=== PATIENT | female | born 1995 | race Caucasian/White ===

== ENCOUNTER 2021-02-15 08:06 | Observation (INO) | payer OTHER ==
[~2021-02-15] VITALS: Ht 165.1 cm; Wt 60.3 kg
[2021-02-15 08:11] VITALS: BP 131/88
--- NOTE | 2021-02-15 08:20 | NUR ---
Patient ambulated to bed 09 with steady/even gait.
[2021-02-15] MEDS ORDERED: METOCLOPRAMIDE 10 MG/2 ML INJ VIAL IVP ONE (08:30)
[2021-02-15] MEDS ORDERED: NACL 0.9% 2,000 ML IV ONE (08:30)
--- NOTE | 2021-02-15 08:30 | NUR ---
Dr. Coleman is evaluating patient at bedside
--- NOTE | 2021-02-15 08:45 | NUR ---
25 y/o F BIB from home c/o nausea + vomiting x 4 weeks. Patient A&Ox4, ambulatory, reports she is 9 weeks , 1 , and began experiencing nausea and vomiting 4 weeks into . Patient reports for past 2 weeks nausea and vomiting has been progressively worsening. Patient reports weakness and associated loss of appetite of fluids and PO + constipation "a few weeks now." Patient reports diagnosed with UTI two weeks ago, however, has not picked up prescription for ABX. Patient denies fever, chills, dysuria, SOB, chest pain, headache. Pt placed into gown and puffer tender showing HR 126. Bed locked in lowest position, side rails x 1, call light in reach. at bedside. MEDHX: DENIES ALLERGIES: DENIES
--- NOTE | 2021-02-15 08:59 | NUR ---
EMT at bedside for EKG
--- NOTE | 2021-02-15 09:14 | NUR ---
Pt reports she feels a lot better, denies any nausea at this time. remains at bedside. HR 96.
[2021-02-15 09:31] LABS: BASOPHILS % (AUTO) 0.2 % (0.0-2.0); EOSINOPHILS # (AUTO) 0.1 K/uL (0-0.4); EOSINOPHILS % (AUTO) 0.3 % (0.0-4.0); HEMATOCRIT 44.6 % (36-48); HEMOGLOBIN 15.9 g/dL (12.0-16.0); LYMPHOCYTES # (AUTO) 1.8 K/uL (2.5-16.5); LYMPHOCYTES % (AUTO) 10.3 % (20.5-51.1); MEAN CORPUSCULAR HEMOGLOBIN 32 pg (27-31); MEAN CORPUSCULAR HGB CONC 36 g/dL (33-37); MEAN CORPUSCULAR VOLUME 88.6 fL (80-94); MONOCYTES # (AUTO) 1.2 K/uL (0.8-1.0); MONOCYTES % (AUTO) 6.7 % (1.7-9.3); NEUTROPHILS # (AUTO) 14.3 K/uL (1.8-7.7); NEUTROPHILS % (AUTO) 82.5 % (42.2-75.2); PLATELET COUNT (AUTO) 258 K/uL (140-450); RED BLOOD CELL COUNT(AUTO) 5.03 MIL/uL (4.20-5.40); RED CELL DISTRIBUTION WIDTH 13.1 % (11.6-13.7); WHITE BLOOD COUNT (AUTO) 17.3 K/uL (4.8-10.8)
[2021-02-15 09:51] LABS: ALBUMIN 4.2 g/dL (3.4-5.0); ANION GAP 23.6 (8-16); CARBON DIOXIDE 16.9 mmol/L (21-32); CREATININE 0.7 mg/dL (0.6-1.3); TOTAL BILIRUBIN 0.9 mg/dL (0.0-1.0)
[2021-02-15 10:09] LABS: POTASSIUM 2.5 mmol/L (3.5-5.1)
[2021-02-15] MEDS ORDERED: MAG SULF 2000 MG/WATER PREMIX 50 ML IV ONE (10:15)
[2021-02-15] MEDS ORDERED: POTASSIUM CHLORIDE 10 MEQ TABER PO ONE (10:15)
[2021-02-15] MEDS ORDERED: POTASSIUM CHLORIDE 20% 40 MEQ/15 ML UDC PO ONE ×2 (10:20→10:30)
--- NOTE | 2021-02-15 10:21 | NUR ---
Patient sitting upright in bed with at bedside. monitor tech in place. Pt states she feels a lot better at this time. Bed locked in lowest position, side rails x 1, call light in reach.
[2021-02-15] MEDS ORDERED: PNV1TABL5 PO (10:54)
[2021-02-15] MEDS ORDERED: RIZA10TA16 PO (10:54)
[2021-02-15] MEDS ORDERED: LACTATED RINGERS 1,000 ML IV ONE (11:30)
--- NOTE | 2021-02-15 11:36 | NUR ---
Pt sitting upright in bed on telephone. Pt provided with ice chips per request. All needs met.
[2021-02-15 11:39] LABS: APPEARANCE,URINE CLEAR (CLEAR); BILIRUBIN,URINE 1+ (NEGATIVE); BLOOD, URINE TRACE-L (NEGATIVE); COLOR,URINE DARK YELLOW (YELLOW); LEUKOCYTE ESTERASE ,URINE NEGATIVE (NEGATIVE); NITRITE, URINE NEGATIVE (NEGATIVE); UGLUCOSE NEGATIVE (NEGATIVE)
--- NOTE | 2021-02-15 11:48 | NUR ---
Ice chips provided per request. Pt denies nausea at this time. Denies pain. All pt needs met.
--- NOTE | 2021-02-15 12:21 | NUR ---
Pt resting in semi-fowlers in position of comfort. media monitor in place. Bed locked in lowest position, side rails x 1, call light in reach. remains at bedside
[2021-02-15 12:22] LABS: RBC,URINE 0-5 /HPF (0-5); YEAST,URINE Moderate /HPF (None Seen)
--- NOTE | 2021-02-15 13:21 | NUR ---
Patient resting in semi-fowlers position sitting upright. monitor worker in place. VSS. Denies nausea at this time. Emesis bag remains at bedside
[2021-02-15] MEDS ORDERED: KCL 20 MEQ/WATER INJ PREMIX 200 ML IV ONE (13:30)
[2021-02-15] MEDS ORDERED: cefTRIAXone 1,000 MG VIAL ONE (16:38)
[2021-02-15] MEDS ORDERED: POTASSIUM CHLORIDE 10 MEQ TABER PO PRN (16:50)
[2021-02-15] MEDS ORDERED: MAGNESIUM OXIDE 400 MG TAB PO PRN (16:50)
[2021-02-15] MEDS: THIAMINE 100 MG TAB PO SCH (16:55)
[2021-02-15] MEDS ORDERED: PYRIDOXINE 50 MG TAB ONE ×2 (17:25→17:27)
[2021-02-15] MEDS ORDERED: CRUSHER, PILL MC ONE (17:26)
--- NOTE | 2021-02-15 17:27 | NUR ---
PULLED ADDITIONAL VITAMIN B6 FROM PYXIS -- FIRST PULL DROPPED ONTO GROUND.
--- NOTE | 2021-02-15 17:30 | NUR ---
Pt reports she is not used to swallowing pills, refusing PO medications at this time.
[2021-02-15] MEDS: DICYCLOMINE 10 MG CAP PO SCH (17:35)
--- NOTE | 2021-02-15 17:55 | NUR ---
Pt reports nausea + vomiting x 1 episode. Zofran PRN to be given.
[2021-02-15] MEDS: NACL 0.9% 1,000 ML IV SCH ×2 (18:07→23:54)
[2021-02-15] MEDS: ONDANSETRON 4 MG/2 ML VIAL IVP PRN (18:09)
--- NOTE | 2021-02-15 18:30 | NUR ---
Patient at bedside with KCl IVPB running. Pt complained of pain from medication; increased rate of NS. All pt needs met.
--- NOTE | 2021-02-15 19:18 | NUR ---
Report and transfer of care endorsed to BINA Bledsoe
--- NOTE | 2021-02-15 21:09 | NUR ---
report given to giana walker.
[2021-02-15 21:22] VITALS: BP 112/77
--- NOTE | 2021-02-15 21:22 | NUR ---
Patient will be admitted to care of . Admited to [facility]. Will go to [id number]. Belongings list completed. Report to BINA CAMPOS.
--- NOTE | 2021-02-15 21:22 | NUR ---
ADMITTED FROM ER WITH CHIEF COMPLAINT OF NAUSEA AND VOMITING ACCOMPANIED BY ER NURSE VIA WHEELCHAIR. PATIENT IS STABLE. A&OX4. RESPIRATIONS EVEN AND UNLABORED. O2 ON RA WITH SAT OF 97%. PATIENT DENIES ANY PAIN OR DISTRESS AT THE MOMENT. NO APPARENT S/SX OF ACUTE RESPIRATORY DISTRESS. PATIENT STATES SHE IS 9 WEEKS AND EPISODES OF NAUSEA AND VOMITING STARTED APPROXIMATELY 4 WEEKS AGO. PATIENT STATES THAT NAUSEA AND VOMITING HAS GONE AWAY AT THIS TIME. 20G ON LEFT HAND SL PATENT/INTACT. COMPLETED HEAD-TO-TOE ASSESSMENTS WITH MAYE CURRAN. SKIN IS INTACT. ORIENTED TO CALL LIGHT, BED, PHONE, TELEVISION, BATHROOM, SMOKING POLICY, VISITING HOURS, PROCEDURES. ID BRACELET ON. BELONGINGS LIST CHECKED. ALL SAFETY MEASURES IN PLACE. BED ON LOW/LOCKED POSITION. CALL LIGHT WITHIN REACH. ENCOURAGED PATIENT TO USE CALL LIGHT FOR ANY NEEDS/ASSISTANCE. WILL CONTINUE TO MONITOR.
--- NOTE | 2021-02-15 22:00 | NUR ---
Patient's Plan of Care was discussed and reviewed with CHRONOMETER ASSEMBLER: EMMETT MIRAMONTES
--- NOTE | 2021-02-15 22:30 | NUR ---
PATIENT C/O OF HEARTBURN. CONTACTED CALI HARRIS MD TO PUT IN AN ORDER FOR TUMS.
[2021-02-16] VITALS: BP 113/69
[2021-02-16] MEDS: CALCIUM CARBONATE 500 MG TAB.CHEW PO PRN (00:07)
--- NOTE | 2021-02-16 00:07 | NUR ---
ADMINISTERED TUMS. WILL REASSESS PATIENT IN AN HOUR.
--- NOTE | 2021-02-16 01:07 | NUR ---
REASSESSED PATIENT. MEDICATION EFFECTIVE EVIDENCED BY PATIENT STATING "HEARTBURN WENT AWAY". PROVIDED PATIENT WITH APPLE JUICE. ADVISED PATIENT TO DRINK TOLERATED. ALL SAFETY MEASURES IN PLACE. CALL LIGHT WITHIN REACH. WILL CONTINUE TO MONITOR.
--- NOTE | 2021-02-16 03:10 | NUR ---
CHECKED ON PATIENT. STABLE AND ASLEEP. BREATHING SYMMETRICAL. NO APPARENT S/SX OF ACUTE RESPIRATORY DISTRESS. ALL SAFETY MEASURES IN PLACE. CALL LIGHT WITHIN REACH. WILL CONTINUE TO MONITOR.
[2021-02-16 04:00] VITALS: BP 118/70
--- NOTE | 2021-02-16 05:10 | NUR ---
CHECKED ON PATIENT. STABLE AND SLEEPING COMFORTABLY. RESPIRATIONS EVEN AND UNLABORED. NO APPARENT S/SX OF ACUTE RESPIRATORY DISTRESS. ALL SAFETY MEASURES IN PLACE. CALL LIGHT WITHIN REACH. WILL CONTINUE TO MONITOR.
[2021-02-16] MEDS: NACL 0.9% 1,000 ML IV SCH ×3 (05:20→23:26)
--- NOTE | 2021-02-16 07:00 | NUR ---
ENDORSED TO MORNING SHIFT REGARDING PATIENT'S ANDERSON. PATIENT IS STABLE.
--- NOTE | 2021-02-16 07:30 | NUR ---
REPORT RECEIVED FROM PM SHIFT RN FOR CONTINUITY OF CARE. PT IS A&0X4. ABLE TO MAKE TO NEEDS KNOWN. IV SITE LT HAND 20G, INTACT, PATENT, GOOD BLOOD RETURN, INFUSING 80 ML/HR. SKIN INTACT, WARM AND DRY. BED LOCKED IN LOWEST POSITION. SAFETY PRECAUTIONS IN PLACE. CALL LIGHT WITHIN IN REACH, WILL CONTINUE TO MONITOR.
[2021-02-16 07:34] LABS: ALBUMIN 2.8 g/dL (3.4-5.0); ANION GAP 16.4 (8-16); CARBON DIOXIDE 19.4 mmol/L (21-32); CREATININE 0.4 mg/dL (0.6-1.3); MAGNESIUM 1.9 mg/dL (1.8-2.4); TOTAL BILIRUBIN 0.6 mg/dL (0.0-1.0)
[2021-02-16 07:43] LABS: POTASSIUM 2.8 mmol/L (3.5-5.1)
[2021-02-16 08:00] VITALS: BP 105/62
[2021-02-16] MEDS ORDERED: CRUSHER, PILL MC ONE (08:19)
[2021-02-16] MEDS ORDERED: KCL 20 MEQ/WATER INJ PREMIX 200 ML IV SCH (09:00)
[2021-02-16] MEDS ORDERED: POTASSIUM CHLORIDE 20% 40 MEQ/15 ML UDC ONE (09:07)
[2021-02-16] MEDS: PYRIDOXINE 50 MG TAB PO SCH (09:14)
[2021-02-16] MEDS: THIAMINE 100 MG TAB PO SCH (09:14)
[2021-02-16] MEDS ORDERED: POTASSIUM CHLORIDE 20% 40 MEQ/15 ML UDC PO SCH (09:20)
--- NOTE | 2021-02-16 11:30 | NUR ---
PATIENT SITTING IN BED WATCHING TV. AT BEDSIDE. NO DISTRESS NOTED. WILL CONTINUE TO MONITOR.
--- NOTE | 2021-02-16 14:30 | NUR ---
PATIENT WATCHING VIDEO ON HER PHONE. CONDITION UNCHANGED. NO NAUSEA/VOMITING AT THIS TIME. WILL CONTINUE TO MONITOR.
[2021-02-16 16:00] VITALS: BP 113/73
[2021-02-16] MEDS: DICYCLOMINE 10 MG CAP PO SCH (16:55)
--- NOTE | 2021-02-16 16:55 | NUR ---
PATIENT REFUSED SCHEDULED DICYLCOMINE. WILL CONTINUE TO MONITOR.
--- NOTE | 2021-02-16 18:17 | NUR ---
PATIENT SITTING DOWN IN BED WITH DINNER TRAY IN FRONT. NO DISTRESS NOTED. CONDITION UNCHANGED. WILL CONTINUE TO MONITOR.
--- NOTE | 2021-02-16 19:24 | NUR ---
GAVE REPORT TO [employer] SALES CONSULTANT NURSE FOR CONTINUITY OF CARE. PATIENT IN STABLE CONDITION.
--- NOTE | 2021-02-16 19:25 | NUR ---
RECEIVED ENDORSEMENT FROM MORNING SHIFT REGARDING PATIENT'S CONTINUITY OF CARE. PATIENT STABLE AND EATING DINNER. A&OX4. RESPIRATIONS EVEN AND UNLABORED. ON ROOM AIR. NO APPARENT SIGNS AND SYMPTOMS OF ACUTE RESPIRATORY DISTRESS. SKIN INTACT, WARM, AND DRY. PATIENT DENIES PAIN 0/10. PATIENT C/O OF COUGHING 30 MINUTES AGO AND TINGLING SENSATION IN THE FACE. ENDORSED TO DIANA CHRISTINE REGARDING INTERVENTIONS. IV SITE OF 20G ON RIGHT HAND INTACT/PATENT WITH NS INFUSING AT 80 ML/HOUR. PLAN OF CARE AND WHITE BOARD COMMUNICATION UPDATED. ON BEDSIDE. ALL SAFETY MEASURES IN PLACE. BED ON LOW/LOCKED POSITION. CALL LIGHT WITHIN REACH. ENCOURAGED PATIENT TO USE CALL LIGHT FOR ANY NEEDS/ASSISTANCE. WILL CONTINUE TO MONITOR.
--- NOTE | 2021-02-16 20:00 | NUR ---
Patient's Plan of Care was discussed and reviewed with REEL ASSEMBLER: EMMETT MIRAMONTES
--- NOTE | 2021-02-16 21:20 | NUR ---
CHECKED ON PATIENT. STABLE IN BED EATING DINNER TRAY. NO APPARENT S/SX OF ACUTE RESPIRATORY DISTRESS. DENIES PAIN 0/10. ENCOURAGED PATIENT TO USE CALL LIGHT WITH ANY ASSISTANCE/NEEDS. WILL CONTINUE TO MONITOR.
--- NOTE | 2021-02-16 23:26 | NUR ---
NEW BAG OF NS HANGING AND INFUSING AT 80ML/HOUR. IV SITE ON LEFT HAND 20G PATENT/INTACT. NO APPARENT S/SX OF ACUTE RESPIRATORY DISTRESS. ALL SAFETY MEASURES IN PLACE. CALL LIGHT WITHIN REACH. WILL CONTINUE TO MONITOR.
[2021-02-17] VITALS: BP 115/74
--- NOTE | 2021-02-17 01:02 | NUR ---
ROUNDED ON PATIENT. STABLE AND SLEEPING COMFORTABLY IN SUPINE POSITION. RESPIRATIONS EVEN AND UNLABORED. NO APPARENT S/SX OF ACUTE RESPIRATORY DISTRESS. ALL SAFETY MEASURES IN PLACE. CALL LIGHT WITHIN REACH. WILL CONTINUE TO MONITOR.
--- NOTE | 2021-02-17 03:02 | NUR ---
ROUNDED ON PATIENT. STABLE AND SLEEPING COMFORTABLY. BREATHING SYMMETRICAL. NO APPARENT S/SX OF ACUTE RESPIRATORY DISTRESS. ALL SAFETY MEASURES IN PLACE. CALL LIGHT WITHIN REACH. WILL CONTINUE TO MONITOR.
--- NOTE | 2021-02-17 05:02 | NUR ---
CHECKED ON PATIENT. STABLE AND SLEEPING COMFORTABLY. BREATHING SYMMETRICAL. NO APPARENT S/SX OF ACUTE RESPIRATORY DISTRESS. ALL SAFETY MEASURES IN PLACE. CALL LIGHT WITHIN REACH. WILL CONTINUE TO MONITOR.
[2021-02-17] MEDS: ONDANSETRON 4 MG/2 ML VIAL IVP PRN (06:06)
--- NOTE | 2021-02-17 06:06 | NUR ---
VOMITED SMALL AMOUNT OF LIQUID. MEDICATED WITH ZOFRAN PER MD ORDER BY CHARGE NURSE ILSA. WILL CONTINUE TO MONITOR.
[2021-02-17] MEDS: NACL 0.9% 1,000 ML IV SCH (06:20)
--- NOTE | 2021-02-17 07:05 | NUR ---
ENDORSED PATIENT TO MORNING SHIFT REGARDING ANDERSON. PATIENT IS STABLE.
--- NOTE | 2021-02-17 07:13 | NUR ---
RECEIVED REPORT FROM CASH CLERK NURSE. PT RESTING IN BED. NO S/S OF DISTRESS. BREATHING SYMMETRICAL. CALL LIGHT IN REACH ALL SAFETY MEASURES IN PLACE. IV RUNNING PER MD ORDERS.
[2021-02-17 07:35] LABS: ALBUMIN 3.2 g/dL (3.4-5.0); ANION GAP 14.2 (8-16); CARBON DIOXIDE 22.8 mmol/L (21-32); CREATININE 0.5 mg/dL (0.6-1.3); MAGNESIUM 1.7 mg/dL (1.8-2.4); TOTAL BILIRUBIN 0.5 mg/dL (0.0-1.0)
[2021-02-17 08:00] VITALS: BP 108/67
[2021-02-17] MEDS: THIAMINE 100 MG TAB PO SCH (08:07)
[2021-02-17] MEDS: PYRIDOXINE 50 MG TAB PO SCH (08:07)
[2021-02-17] MEDS: CALCIUM CARBONATE 500 MG TAB.CHEW PO PRN (08:07)
--- NOTE | 2021-02-17 09:03 | NUR ---
PATIENT HAS BEEN SCREENED AND CATEGORIZED HIGH NUTRITION RISK. PATIENT WILL BE SEEN WITHIN 1-2 DAYS OF ADMISSION. 02/17/[address]
[2021-02-17] MEDS ORDERED: BEN10 PO (09:19)
[2021-02-17] MEDS ORDERED: ONDA2SOL45 IVP (09:19)
[2021-02-17] MEDS ORDERED: PYRI50TA33 PO (09:19)
[2021-02-17] MEDS ORDERED: THIA-34 PO (09:19)
--- NOTE | 2021-02-17 09:45 | NUR ---
SPOKE TO MD. PATIENT READY TO DISCHARGE. PT VERBALIZED UNDERSTANDING OF DISCHARGE. PT MEDICATED PER MD ORDERS. EDUCATED ON MEDICATIONS. PT VERBALIZED UNDERSTANDING. NO S/S OF DISTRESS. BREATHING SYMMETRICAL. CALL LIGHT IN REACH ALL SAFETY MEASURES IN PLACE. IV RUNNING PER MD ORDER.
[2021-02-17] MEDS ORDERED: FLU VACCINE QS2021-22 0.5 ML SYR IMVAC ONE (11:35)
--- NOTE | 2021-02-17 12:30 | NUR ---
PT DC. PT WALKED TO FRONT WITH SPOUSE FOR RECRUITMENT OFFICER. IV REMOVED. CANULA INTACT. FLU VACCINE ADMINISTERED. PT EDUCATED AND SIGNED FOR DC. PATIENT VERBALIZED UNDERSTANDING OF EDUCATION ON DC AND VACCINE. PT STABLE. ID BAND REMOVED.
== END 2021-02-17 12:35 | disposition home or self-care (01) ==
LOC: MED 08:06 → MMU 16:49 → MTU 16:51
PROVIDERS: ADMIT Student in an Organized Health Care Education/Training Program; ATTEND Student in an Organized Health Care Education/Training Program
DX: O21.1 Hyperemesis gravidarum with metabolic disturbance (principal); O99.281 Endocrine, nutritional and metabolic diseases complicating pregnancy, first trimester; E86.1 Hypovolemia; O99.111 Other diseases of the blood and blood-forming organs and certain disorders involving the immune mechanism complicating pregnancy, first trimester; D72.829 Elevated white blood cell count, unspecified; O26.891 Other specified pregnancy related conditions, first trimester; R63.4 Abnormal weight loss; R82.71 Bacteriuria; O99.891 Other specified diseases and conditions complicating pregnancy; R00.0 Tachycardia, unspecified; Z3A.08 8 weeks gestation of pregnancy; Z23 Encounter for immunization
CPT/HCPCS: 36415; 80053; 81001; 83690; 83735; 84702; 85025; 86886; 86900; 86901; 87081; 90471; 93005; 96361; 96365; 96366; 96367; 96375; 96376; 99284; 99285; G0378; J0696; J2405; J2765; J3475; J3480